=== PATIENT | female | born 1985 | race Caucasian/White ===

== ENCOUNTER 2018-06-24 11:42 | Emergency (ER) | payer OTHER ==
[2018-06-24 11:47] VITALS: BP 139/79; PULSE 83; TEMP 98.7; BMI 26.9
--- NOTE | 2018-06-24 12:20 | PDOC ---
History of Present Illness - General Chief Complaint: Diarrhea Stated Complaint: BLOOD IN STOOL Time Seen by Provider: 06/24/18 12:13 History Source: Patient - History of Present Illness Timing/Duration: reports: other Past History - Past Medical History Allergies/Adverse Reactions: Allergies Allergy/AdvReac Type Severity Reaction Status Date / Time No Known Allergies Allergy Verified 06/24/18 11:46 Home Medications: Ambulatory Orders NK [No Known Home Medication] 06/24/18 COPD: No Other medical history: taking weight loss pills - Suicide/Smoking/Psychosocial Hx Smoking Status: Yes Smoking History: Current every day smoker Number of Cigarettes Smoked Daily: 10 Information on smoking cessation initiated: No Hx Alcohol Use: No Drug/Substance Use Hx: No Review of Systems - Review of Systems Constitutional: No: Chills, Fever, Weakness ABD/GI: Yes: Blood Streaked Bowels, Diarrhea, Nausea, Abdominal cramping. No: Constipated, Vomiting *Physical Exam - Vital Signs Last Vital Signs Temp Pulse Resp BP Pulse Ox 98.7 F 83 18 139/79 98 06/24/18 11:44 06/24/18 11:44 06/24/18 11:44 06/24/18 11:44 06/24/18 11:44 - Physical Exam General Appearance: Yes: Appropriately Dressed. No: Apparent Distress HEENT: positive: Normal Voice Neck: positive: Supple Respiratory/Chest: negative: Respiratory Distress Gastrointestinal/Abdominal: positive: Soft. negative: Tender Integumentary: positive: Dry, Warm Neurologic: positive: Fully Oriented, Alert, Normal Mood/Affect ED Treatment Course - LABORATORY CBC & Chemistry Diagram: 06/24/18 12:54 06/24/18 12:54 Medical Decision Making - Medical Decision Making 06/24/18 12:19 33 yo F, no sig hx, here w/ numerous e/o watery diarrhea x 3 days and noticed bloody stool once today. Reports nausea but no vomiting. Only has abdominal pain right before she has a bowel movement. Denies any fever or chills. States she was diagnosed with strep throat recently and was on amoxicillin for 5 days, but continued to be symptomatic, so was placed on cefuroxime, which she took for 7 days. Last dose was 8 days ago. No recent travel, sick contacts or unusual food See exam Diarrhea s/p multiple course of abx for strep throat recently Stable in ED w/ benign abd -labs -IVF -stool for cdif -reassess 06/24/18 15:18 Labs unremarkable. Pt has since been able to give a stool sample here that was sent off for C. difficile. Patient reports feeling better with fluids and requesting to be discharged. States she would rather ED call her with C. difficile results at [phone] 06/24/18 18:37 I called lab as cdif test is still pending after several hrs. I called the lab and was told that test will not be resulted until tomorrow. I contacted patient and made her aware. I myself will be at work tomorrow and will call her with results. Pt told she can also call the ER for results *DC/Admit/Observation/Transfer Diagnosis at time of Disposition: Diarrhea Qualifiers: Diarrhea type: unspecified type Qualified Code(s): R19.7 - Diarrhea, unspecified - Discharge Dispostion Disposition: HOME Condition at time of disposition: Improved - Referrals - Patient Instructions Printed Discharge Instructions: Diarrhea Additional Instructions: You decided to leave prior to cdif results We will call you with results Please rest and drink plenty of fluids - Post Discharge Activity
[2018-06-24] MEDS ORDERED: SODIUM CHLORIDE 1,000 ML IV STA (12:22)
[2018-06-24 13:06] LABS: BASO % 0.5 % (0-2.0); EOS % 0.7 % (0-4.5); HEMATOCRIT 42.6 % (32.4-45.2); HEMOGLOBIN 14.4 GM/dL (10.7-15.3); LYMPH % 23.9 % (8-40); MCH 29.5 pg (25.7-33.7); MCHC 33.9 g/dl (32.0-36.0); MEAN CELL VOLUME 86.9 fl (80-96); MEAN PLT VOLUME 9.6 fl (7.5-11.1); NEUT % 67.9 % (42.8-82.8); PLATELET COUNT 205 K/MM3 (134-434); WHITE BLOOD COUNT 10.6 K/mm3 (4.0-10.0)
[2018-06-24 13:31] LABS: ALBUMIN 4.2 g/dl (3.4-5.0); ALK PHOS 95 U/L (45-117); ANION GAP 7 MMOL/L (8-16); BILIRUBIN,TOTAL 0.7 mg/dL (0.2-1); BLOOD UREA NITROGEN 14 mg/dL (7-18); CALCIUM 9.3 mg/dL (8.5-10.1); CHLORIDE 107 mmol/L (98-107); CO2 25 mmol/L (21-32); CREATININE 0.7 mg/dL (0.55-1.3); GLUCOSE,RANDOM 75 mg/dL (74-106); POTASSIUM 4.3 mmol/L (3.5-5.1); SGOT/AST 11 U/L (15-37); SGPT/ALT 21 U/L (13-61); SODIUM 139 mmol/L (136-145); TOT PROT 7.4 g/dl (6.4-8.2)
== END 2018-06-24 16:15 | disposition home or self-care (01) ==
LOC: JER 11:42
PROC: 3E0337Z Introduction of Electrolytic and Water Balance Substance into Peripheral Vein, Percutaneous Approach (ICD-10-PCS; principal; 2018-06-24)
DX: R19.7 Diarrhea, unspecified (principal); F17.210 Nicotine dependence, cigarettes, uncomplicated
CPT/HCPCS: 36415; 80053; 84703; 85025; 87045; 87046; 87324; 87449; 87493; 99282-25; J7030

== ENCOUNTER 2018-07-10 17:00 | Emergency (ER) | payer OTHER ==
[2018-07-10 17:24] VITALS: BP 113/85; PULSE 86; TEMP 98.2; BMI 26.6
[2018-07-10 17:32] LABS: HCG,QUALITATIVE URINE Negative
--- NOTE | 2018-07-10 17:43 | PDOC ---
Attending Attestation - Resident Resident Name: Robin Orta - ED Attending Attestation I have performed the following: I have examined & evaluated the patient, The case was reviewed & discussed with the resident, I agree w/resident's findings & plan, Exceptions are as noted - HPI HPI: 07/10/18 17:49 33y F hx of recent dx of cdiff s/p 10 day course of vancomycin presents with LLQ pain that is cramping in nature. Pt states that approx 2 weeks ago, she had abd cramping / foul smelling bloody stools sp taking abx, was started on vancomycin and had gradual improvement of her symptmos. but 5 days ago, LLQ cramping came back and worsend after eating. pt denies any fever/chills, vag bleeding, vag discharge, dysuria, hematuria. no mroe foul smelling or bloody stools. no abd surgery in the past. - Physicial Exam PE: 07/10/18 18:45 GENERAL: The patient is awake, alert, and fully oriented, Nontoxic - in no acute distress. HEAD: Normocephalic, atraumatic. EYES: extraocular movements intact, sclera anicteric, conjunctiva clear. ENT: Normal voice, Moist mucous membranes. NECK: Normal range of motion, supple LUNGS: Breath sounds equal, clear to auscultation bilaterally. No wheezes, no rhonchi, no rales. HEART: Regular rate and rhythm, ABDOMEN: mild LLQ teenderness, no erbound/guarding EXTREMITIES: Normal range of motion, no edema. NEUROLOGICAL: No facial assymetry, Normal speech, PSYCH: Normal mood, normal affect. SKIN: Warm, Dry, normal turgor, - Medical Decision Making 07/10/18 18:47 will ck basic lab work ct abd to ro clolitis/diverticulitis will reassess 07/10/18 19:31 case signed out [address] dr. Escobedo to fu with results and dispo the ptiant
--- NOTE | 2018-07-10 17:44 | PDOC ---
History of Present Illness - General History Source: Patient Exam Limitations: No Limitations - History of Present Illness Initial Comments: 33 yo F with a hx of lumbar disc herniations presents to the emergency department with periumbilical pain with radiation to the LUQ and LLQ since yesterday morning. Per the patient, the pain is described as a cramping like sensation, 7/10 in severity, with associative nausea, without associated aggravating and relieving factors. The patient denies vaginal bleeding and discharge. She states she finished her oral vancomycin 5 days ago for a c diff infection she acquired after taking abx for her strep throat. She denies the following: fever, chills, SOB, chest pain, nausea, dysuria, hematuria, increased urinary frequency, diarrhea, hematochezia, and leg pain/swelling. Allergies: NKDA Shx: None <Robin Orta - Last Filed: 07/10/18 18:54> <Larisa Escobedo - Last Filed: 07/11/18 06:32> - General Chief Complaint: Pain Stated Complaint: ABD PAIN Time Seen by Provider: 07/10/18 17:08 Past History - Past Medical History COPD: No GI Disorders: Yes (H/O C DIFF) - Suicide/Smoking/Psychosocial Hx Smoking Status: Yes Smoking History: Current every day smoker Have you smoked in the past 12 months: Yes Number of Cigarettes Smoked Daily: 20 Information on smoking cessation initiated: Yes Hx Alcohol Use: (social) Drug/Substance Use Hx: No <Robin Orta - Last Filed: 07/10/18 18:54> <Larisa Escobedo - Last Filed: 07/11/18 06:32> - Past Medical History Allergies/Adverse Reactions: Allergies Allergy/AdvReac Type Severity Reaction Status Date / Time No Known Allergies Allergy Verified 07/10/18 17:03 Home Medications: Ambulatory Orders Phentermine HCl 15 mg PO DAILY 07/10/18 *Physical Exam - Vital Signs Last Vital Signs Temp Pulse Resp BP Pulse Ox 98.2 F 86 18 113/85 100 07/10/18 17:00 07/10/18 17:00 07/10/18 17:00 07/10/18 17:00 07/10/18 17:00 <Robin Orta - Last Filed: 07/10/18 18:54> - Vital Signs Last Vital Signs Temp Pulse Resp BP Pulse Ox 98.2 F 86 18 113/85 100 07/10/18 17:00 07/10/18 17:00 07/10/18 17:00 07/10/18 17:00 07/10/18 17:00 <Larisa Escobedo - Last Filed: 07/11/18 06:32> ED Treatment Course - LABORATORY CBC & Chemistry Diagram: 07/10/18 17:50 07/10/18 17:50 - ADDITIONAL ORDERS Additional order review: Laboratory Results 07/10/18 17:14 Urine Color Yellow Urine Appearance Clear Urine pH 6.0 Urine Protein Negative Urine Glucose (UA) Negative Urine Ketones Trace Urine Blood Trace-intact Urine Nitrite Negative Urine Bilirubin Negative Urine Urobilinogen 0.2 Ur Leukocyte Esterase Negative Urine HCG, Qual Negative <Robin Orta - Last Filed: 07/10/18 18:54> - LABORATORY CBC & Chemistry Diagram: 07/10/18 17:50 07/10/18 17:50 - ADDITIONAL ORDERS Additional order review: Laboratory Results 07/10/18 07/10/18 17:50 17:14 Sodium 140 Potassium 4.0 Chloride 109 H Carbon Dioxide 24 Anion Gap 7 L BUN 9 Creatinine 0.6 Est GFR (CKD-EPI)AfAm 136.87 Est GFR (CKD-EPI)NonAf 118.09 Random Glucose 90 Calcium 8.9 Total Bilirubin 0.4 AST 20 ALT 17 Alkaline Phosphatase 76 Total Protein 6.7 Albumin 4.1 Lipase 132 Urine Color Yellow Urine Appearance Clear Urine pH 6.0 Urine Protein Negative Urine Glucose (UA) Negative Urine Ketones Trace Urine Blood Trace-intact Urine Nitrite Negative Urine Bilirubin Negative Urine Urobilinogen 0.2 Ur Leukocyte Esterase Negative Urine RBC 2-5 Urine WBC 0-2 Ur Transition Epith Cell Few Urine Bacteria Moderate Urine HCG, Qual Negative 07/10/18 17:50 RBC 4.69 MCV 87.1 MCHC 32.8 RDW 12.8 MPV 10.3 Neutrophils % 51.6 Lymphocytes % 38.6 Monocytes % 7.8 Eosinophils % 1.2 Basophils % 0.8 <Larisa Escobedo - Last Filed: 07/11/18 06:32> *DC/Admit/Observation/Transfer <Robin Orta - Last Filed: 07/10/18 18:54> <Larisa Escobedo - Last Filed: 05/11/19 06:32> Diagnosis at time of Disposition: Abdominal pain, History of Clostridium difficile infection - Discharge Dispostion Disposition: HOME Condition at time of disposition: Stable - Referrals Referrals: Justina Robertson MD [Primary Care Provider] - 3 days - Patient Instructions Printed Discharge Instructions: DI for Abdominal Pain-Adult Additional Instructions: Tylenol as needed for pain Followup with Dr Robertson within 3-4 days Return to ER if you have more severe pain or experience vomiting/fever - Post Discharge Activity
[2018-07-10 17:53] LABS: EPITHELIAL CELLS FEW /hpf
[2018-07-10 18:11] LABS: BASO % 0.8 % (0-2.0); EOS % 1.2 % (0-4.5); HEMATOCRIT 40.9 % (32.4-45.2); HEMOGLOBIN 13.4 GM/dl (10.7-15.3); LYMPH % 38.6 % (8-40); MCH 28.6 pg (25.7-33.7); MCHC 32.8 g/dl (32.0-36.0); MEAN CELL VOLUME 87.1 fl (80-96); MEAN PLT VOLUME 10.3 fl (7.5-11.1); MONO % 7.8 % (3.8-10.2); NEUT % 51.6 % (42.8-82.8); PLATELET COUNT 199 K/MM3 (134-434); RBC 4.69 M/mm3 (3.60-5.2); RDW 12.8 % (11.6-15.6); WHITE BLOOD COUNT 8.6 K/mm3 (4.0-10.8)
[2018-07-10 18:25] LABS: ALBUMIN 4.1 g/dl (3.4-5.0); BILIRUBIN,TOTAL 0.4 mg/dl (0.2-1); CALCIUM 8.9 mg/dl (8.5-10); CREATININE 0.6 mg/dl (0.55-1.3); TOT PROT 6.7 g/dl (6.4-8.2)
--- NOTE | 2018-07-10 20:04 | PDOC ---
*Physical Exam - Vital Signs Last Vital Signs Temp Pulse Resp BP Pulse Ox 98.2 F 86 18 113/85 100 07/10/18 17:00 07/10/18 17:00 07/10/18 17:00 07/10/18 17:00 07/10/18 17:00 ED Treatment Course - LABORATORY CBC & Chemistry Diagram: 07/10/18 17:50 07/10/18 17:50 - ADDITIONAL ORDERS Additional order review: Laboratory Results 07/10/18 07/10/18 17:50 17:14 Sodium 140 Potassium 4.0 Chloride 109 H Carbon Dioxide 24 Anion Gap 7 L BUN 9 Creatinine 0.6 Est GFR (CKD-EPI)AfAm 136.87 Est GFR (CKD-EPI)NonAf 118.09 Random Glucose 90 Calcium 8.9 Total Bilirubin 0.4 AST 20 ALT 17 Alkaline Phosphatase 76 Total Protein 6.7 Albumin 4.1 Lipase 132 Urine Color Yellow Urine Appearance Clear Urine pH 6.0 Urine Protein Negative Urine Glucose (UA) Negative Urine Ketones Trace Urine Blood Trace-intact Urine Nitrite Negative Urine Bilirubin Negative Urine Urobilinogen 0.2 Ur Leukocyte Esterase Negative Urine RBC 2-5 Urine WBC 0-2 Ur Transition Epith Cell Few Urine Bacteria Moderate Urine HCG, Qual Negative 07/10/18 17:50 RBC 4.69 MCV 87.1 MCHC 32.8 RDW 12.8 MPV 10.3 Neutrophils % 51.6 Lymphocytes % 38.6 Monocytes % 7.8 Eosinophils % 1.2 Basophils % 0.8 Progress Note - Progress Note Progress Note: Care of this patient received from Abdominal/pelvic CT performed to evaluate for colitis/diverticulitis or other acute abnormality left side of the abdomen where patient's pain and tenderness was located. CT scan was interpreted by of the radiology staff: There was 5 mm intra-renal stone but otherwise no evidence of acute pathology. No evidence of diverticulitis/colitis or other left-sided pathology. Results discussed with the patient. Since she recently had C. difficile related diarrhea, she states that she will take Tylenol as needed for pain and follow-up with her PMD, Dr. Robertson within the next 3-4 days. If she has any worsening of her pain or experiences severe diarrhea/vomiting/fever, she should return to the ER. *DC/Admit/Observation/Transfer Diagnosis at time of Disposition: History of Clostridium difficile infection Abdominal pain Qualifiers: Abdominal location: left upper quadrant Qualified Code(s): R10.12 - Left upper quadrant pain - Discharge Dispostion Disposition: HOME Condition at time of disposition: Stable - Referrals Referrals: Justina Robertson MD [Primary Care Provider] - 3 days - Patient Instructions Printed Discharge Instructions: DI for Abdominal Pain-Adult Additional Instructions: Tylenol as needed for pain Followup with Dr Robertson within 3-4 days Return to ER if you have more severe pain or experience vomiting/fever - Post Discharge Activity
== END 2018-07-10 20:35 | disposition home or self-care (01) ==
LOC: FER 17:00
DX: R10.12 Left upper quadrant pain (principal); R10.33 Periumbilical pain; F17.210 Nicotine dependence, cigarettes, uncomplicated; Z86.19 Personal history of other infectious and parasitic diseases
CPT/HCPCS: 36415; 74177-TC; 80053; 81003; 81015; 83690; 84703; 85025; 99284-25